=== PATIENT | female | born 1995 | race African-American/Black ===

== ENCOUNTER → 2024-06-25 | Outpatient (CLI) | payer MEDICAID ==
[~2024-06-25] MED LIST: PREN27TA7 OR
[2024-06-25 13:37] LABS: Basophils # (auto) 0 10 ^3/uL (0-0.2); Basophils % (auto) 0.2 % (0.0-2.0); Eosinophils # (auto) 0.1 10 ^3/uL (0-0.8); Hemoglobin 13.9 g/dL (12.2-16.2); Lymphocytes # (auto) 1.7 10 ^3/uL (0.4-5.4); Lymphocytes % (auto) 18.5 % (10.0-50.0); Mean Corpuscular Hemoglobin 32.6 pg (28.0-32.0); Mean Corpuscular Hgb Conc. 35.6 g/dL (32.0-36.0); Mean Corpuscular Volume 91.6 fL (80.0-100.0); Monocytes # (auto) 0.6 10 ^3/uL (0-1.3); Monocytes % (auto) 6.5 % (0.0-12.0); Neutrophils # (auto) 6.8 10 ^3/uL (1.6-8.6); Neutrophils % (auto) 73.8 % (37.0-80.0); Platelet Count (auto) 270 10^3/uL (140-450); Red Blood Cells 4.26 10^6/uL (4.0-5.20); Red Cell Distribution Width 13.1 % (11.8-14.3); White Blood Cell 9.1 10^3/uL (4.4-10.8)
[2024-06-25 14:26] LABS: Alanine Aminotransferase 15 U/L (7-40); Albumin 4.1 g/dL (3.2-4.8); Alkaline Phosphatase 42 U/L (46-116); Calcium 9.2 mg/dL (8.7-10.4); Carbon Dioxide 22 mmol/L (20-31); Chloride 112 mmol/L (98-107); Triglycerides 103 mg/dL (< 150)
[2024-06-25 14:27] LABS: Anion Gap 6 (5-15); Aspartate Aminotransferase < 8 U/L (13-40); BUN/Creatinine Ratio 9.5 (10.0-20.0); Bilirubin, Total 0.2 mg/dL (0.2-1.0); Blood Urea Nitrogen 10 mg/dL (9-23); Cholesterol 135 mg/dL (< 200); Glucose 73 mg/dL (74-106); HDL Cholesterol 50 mg/dL (40-59); LDL Cholesterol 74 mg/dL (< 100); Potassium 3.9 mmol/L (3.5-5.1); Sodium 140 mmol/L (136-145); Total Protein 6.4 g/dL (5.7-8.2)
[2024-06-25 15:09] LABS: Amphetamine Screen, Urine Neg (NEGATIVE); Benzodiazephine Screen, Urine Neg (NEGATIVE)
[2024-06-25 15:10] LABS: Barbiturate Scree,Urine Neg (NEGATIVE); Cannabinoid Screen, Urine Pos (NEGATIVE); Cocaine Screen, Urine Neg (NEGATIVE); Opiate Scree,Urine Neg (NEGATIVE); Phencyclidine Screen, Urine Neg (NEGATIVE)
[2024-06-25 15:19] LABS: Thyroid Stimulating Hormone 0.77 uIU/mL (0.55-4.78)
[2024-06-26 07:06] LABS: RPR Non Reactive (Non Reactive)
[2024-06-26 12:06] LABS: Varicella Zoster IgG Antibody Reactive (Non Reactive)
[2024-06-26 19:06] LABS: Chlamydia Trachomatis, NAA Negative (Negative); Neisseria gonorrhoeae, NAA Negative (Negative)
[2024-06-28 05:08] LABS: QuantiFERON-TB Gold Plus Negative (Negative)
== END | disposition home or self-care (01) ==
LOC: LAB 12:26
PROVIDERS: ATTEND Obstetrics & Gynecology
DX: Z31.430 Encounter of female for testing for genetic disease carrier status for procreative management (principal); Z34.80 Encounter for supervision of other normal pregnancy, unspecified trimester; N39.0 Urinary tract infection, site not specified
CPT/HCPCS: 36415; 80053; 80061; 80307; 83036; 84439; 84443; 84702; 85025; 86592; 86703; 86762; 86787; 86850; 86900; 86901; 87086; 87340; 87902

== ENCOUNTER 2024-12-17 11:11 | Observation (INO) | payer MEDICAID ==
--- NOTE | 2024-12-17 12:10 | DVH ---
BIOPHYSICAL PROFILE HISTORY: Possible SROM Comparison Study: None TECHNIQUE: Multiple real-time grayscale sonographic images through the gravid uterus of the fetus wi th duplex Doppler color flow and M-mode spectral analysis FINDINGS: BIOPHYSICAL PROFILE: breathing score: 2 movement score: 2 tone score: 2 Quantitative SHIVAM score: 2 (SHIVAM: 14.4 Cm.) Total score: 8 The cervix is not visualized Single live fetus in cephalic presentation. heart rate 138 beats per minute. Posterior placenta without previa or abruption IMPRESSION: Biophysical profile score: 8
[2024-12-17 12:51] LABS: Fern Testing Negative
== END 2024-12-17 13:12 | disposition home or self-care (01) ==
LOC: UNDOADMOB 11:11 → LDRP 11:11
PROVIDERS: ADMIT Obstetrics & Gynecology; ATTEND Obstetrics & Gynecology
DX: O62.9 Abnormality of forces of labor, unspecified (principal); Z3A.34 34 weeks gestation of pregnancy; Z79.899 Other long term (current) drug therapy
CPT/HCPCS: 76819; 81002; 84112; 94760; G0378; Q0114

== ENCOUNTER 2025-01-02 14:55 | Observation (INO) | payer MEDICAID ==
--- NOTE | 2025-01-03 07:59 | DVHDS2 ---
Physician Discharge Progress N Final Diagnosis: [facility] 37wks Operations or Procedures: Operations or Procedures nst,sono Condition on Discharge: Good Disposition: Home Discharge Instructions: Diet: Regular Activity: No Restrictions, As Tolerated Medications: na Follow Up Care: Specialist: 1w Discharge Statement: "Patient was advised to return to the ER or call 911 if any headaches, dizziness, shortness of breath, chest pain, abdominal pain, bleeding, fevers, or worsening of medical condition. Patient was counseled about treatment plan, medications, possible side effects, patientverbalized understanding. All questions were answered to the best of my ability. This discharge took greater then 30 minutes in planning, reviewing documentation, counseling the patient, and discussing with other team members." Visit Coding OBGYN Date of Service: Jan 02, 2025 Billing Provider: EVELYN CHAMPION DO COMMERCIAL DOOR INSTALLER Common Visit Codes: [id number] INP/OBS CARE (HIGH) COMMERCIAL DOOR INSTALLER Procedure Codes: [id number] NON-STRESS TEST EVELYN CHAMPION DO Jan 03, 2025 07:59
== END 2025-01-02 17:09 | disposition home or self-care (01) ==
LOC: UNDOADMOB 14:55 → LDRP 14:55 → UNDODISOB 17:09
PROVIDERS: ADMIT Obstetrics & Gynecology; ATTEND Obstetrics & Gynecology
DX: O62.9 Abnormality of forces of labor, unspecified (principal); O42.913 Preterm premature rupture of membranes, unspecified as to length of time between rupture and onset of labor, third trimester; Z3A.37 37 weeks gestation of pregnancy; Z79.899 Other long term (current) drug therapy; Z98.890 Other specified postprocedural states
CPT/HCPCS: 59025; 81002; 84112; 94760; G0378

== ENCOUNTER 2025-01-07 10:20 | Observation (INO) | payer MEDICAID ==
[~2025-01-07] VITALS: Ht 157.5 cm; Wt 91.2 kg
[2025-01-07] MEDS ORDERED: LACTATED RINGER'S 1,000 ML IV ONE (12:45)
[2025-01-07 13:15] VITALS: BP 127/79; PULSE 80; RESP 16
[2025-01-07] MEDS: NALBUPHINE HCL 10 MG/1ml INJECTION IV PRN (13:15)
--- NOTE | 2025-01-07 14:26 | DVH ---
BIOPHYSICAL PROFILE HISTORY: Presentation and well being Comparison Study: 12/17/24 TECHNIQUE: Multiple real-time grayscale sonographic images through the gravid uterus of the fetus wi th duplex Doppler color flow and M-mode spectral analysis FINDINGS: BIOPHYSICAL PROFILE: breathing score: 2 movement score: 2 tone score: 2 Quantitative SHIVAM score: 2 (SHIVAM: 13.2 Cm.) Total score: 8 The cervix is not visualized Single live fetus in cephalic presentation. heart rate 150 beats per minute. Posterior placenta without previa or abruption IMPRESSION: Biophysical profile score: 8
--- NOTE | 2025-01-08 17:29 | DVHDS2 ---
Physician Discharge Progress N Final Diagnosis: 37wks labor check Operations or Procedures: Operations or Procedures nst,sono Condition on Discharge: Good Disposition: Home Discharge Instructions: Diet: Regular Activity: Light activity Medications: na Follow Up Care: Specialist: 1d Discharge Statement: "Patient was advised to return to the ER or call 911 if any headaches, d izziness, shortness of breath, chest pain, abdominal pain, bleeding, fevers, or worsening of medical condition. Patient was counseled about treatment plan, medications, possible side effects, patientverbalized understanding. All questions were answered to the best of my ability. This discharge took greater then 30 minutes in planning, reviewing documentation, counseling the patient, and discussing with other team members." Visit Coding OBGYN Date of Service: Jan 07, 2025 Billing Provider: EVELYN CHAMPION DO CAT SITTER Common Visit Codes: [id number] INP/OBS CARE (HIGH) CAT SITTER Procedure Codes: [id number] NON-STRESS TEST EVELYN CHAMPION DO Jan 08, 2025 17:29
== END 2025-01-07 15:41 | disposition home or self-care (01) ==
LOC: LDRP 10:20
PROVIDERS: ADMIT Obstetrics & Gynecology; ATTEND Obstetrics & Gynecology
DX: O62.9 Abnormality of forces of labor, unspecified (principal); O99.891 Other specified diseases and conditions complicating pregnancy; M54.9 Dorsalgia, unspecified; Z79.899 Other long term (current) drug therapy; Z3A.37 37 weeks gestation of pregnancy
CPT/HCPCS: 59025; 76819; 81002; 94760; 96361; 96374; G0378; J2300; 96360

== ENCOUNTER 2025-01-13 03:29 | Inpatient (IN) | payer MEDICAID ==
[~2025-01-13] VITALS: Ht 157.5 cm; Wt 91.2 kg
[2025-01-13] MEDS ORDERED: LIDOCAINE 2%HCL (LOCAL ANESTH.) INJ 20ML MDV IJ PRN (06:45)
[2025-01-13] MEDS ORDERED: BUTORPHANOL TARTRATE 2 MG/1 ML VIAL IV PRN ×2 (06:45)
--- NOTE | 2025-01-13 06:45 | DVHHP2 ---
OB CC & HPI Date Date of Admission: Jan 13, 2025 Chief Complaints: Reason for admission: active labor Past Medical History Cardiac: No pertinent Hx Pulmonary: No pertinent Hx Central Nervous System: No pertinent Hx GI: No pertinent Hx Hemotology/Oncology: No pertinent Hx Hepatobiliary: No pertinent Hx Psychiatric: No pertinent Hx Musculoskeletal: No pertinent Hx Rheumotologic: No pertinent Hx Infectious Disease: No peritnent Hx ENT: No pertinent Hx Renal/: No pertinent Hx Endocrine: No pertinent Hx Dermatology: No pertinent Hx OB History OB History Care: Good Care Ultrasounds: Normal mid trimester US Medical Complications: None Allergies: Coded Allergies: Codeine (Verified Allergy, Unknown, 01/13/25) Home Meds Reported Medications Vit W/ Ferrous Fumara () 1 Tab Tab, 1 TAB OR DAILY 04/06/13 Current Medications Current Medications Medications (Trade) Dose Ordered Sig/Mo Route PRN Reason Start Time Stop Time Status Last Admin Lactated Ringer's 1,000 ml @ 125 mls/hr Q8H IV 01/13/25 06:45 Witch Francisca (Tucks) 1 pad PRN PRN TOP PERINEAL AREA DISCOMFORT 01/13/25 06:45 Sodium Lauryl Sulfate (Phisoderm) 240 ml PRN PRN TOP PERINEAL AREA DISCOMFORT 01/13/25 06:45 Benzocaine (Dermoplast) 1 applic PRN PRN TOP PERINEAL AREA DISCOMFORT 01/13/25 06:45 Butorphanol Tartrate (Stadol Injection) 1 mg Q4HPRN PRN IV MODERATE PAIN (4-6 PAIN SCALE) 01/13/25 06:45 Butorphanol Tartrate (Stadol Injection) 2 mg Q4HPRN PRN IV SEVERE PAIN (7-10 PAIN SCALE) 01/13/25 06:45 Lidocaine HCl (Xylocaine) 20 ml ONCE PRN IJ PERINEAL AREA DISCOMFORT 01/13/25 06:45 Family & Social History Family/Social History Blood Type: B+ Rubella: immune RPR/VDRL: Negative GBS Status: Negative HBsAG: Negative Review of Systems Constitutional: No symptom reported Ears, Nose, & Throat: No symptom reported Eyes: No symptom reported Pulmonary/Respiratory: No symptom reported Cardiovascular: No symptom reported Gastrointestinal: No symptom reported Genitourinary: No symptom reported Musculoskeletal: No symptom reported Skin: No symptom reported Psychiatric: No symptom reported Endocrine: No symptom reported Hemotologic/Lymphatic: No symptom reported OB Admission Exam Physical Exam HEENT: TMs Normal, Fontanelles Normal, Nasal Mucosa Normal, Eyes non-injected, Oropharynx Normal, PERRLA, Moist Membranes, EOMI Heart: Rhythm Normal Lungs: Clear Abdomen: Non tender Extremities: Normal Reflexes: Normal Cervical Dilatation: 6cm Effacement: 75% Station: -1 Membranes: Intact Heart Rate: 130's Accelerations: Accelerations Present Short Term Variability: Present Lead Systems Analyst Variability: Average (6-25) Contractions on Admission: < 5 Minutes Apart Intensity: Moderate OB Plan Plan Admitting Diagnosis: labor Plan: Expectant Management JAMI BONILLA DO Jan 13, 2025 06:45
[2025-01-13 07:11] LABS: Urine Bacteria None Seen /hpf (None Seen)
[2025-01-13 07:27] LABS: Basophils # (auto) 0.1 10 ^3/uL (0-0.2); Basophils % (auto) 0.7 % (0.0-2.0); Eosinophils # (auto) 0 10 ^3/uL (0-0.8); Eosinophils % (auto) 0.2 % (0.0-7.0); Hematocrit 38.6 % (36.0-46.0); Hemoglobin 13.9 g/dL (12.2-16.2); Lymphocytes # (auto) 1.6 10 ^3/uL (0.4-5.4); Mean Corpuscular Hemoglobin 32.6 pg (28.0-32.0); Mean Corpuscular Hgb Conc. 36.1 g/dL (32.0-36.0); Mean Corpuscular Volume 90.4 fL (80.0-100.0); Monocytes # (auto) 0.6 10 ^3/uL (0-1.3); Monocytes % (auto) 6.8 % (0.0-12.0); Neutrophils % (auto) 75.3 % (37.0-80.0); Platelet Count (auto) 217 10^3/uL (140-450); Red Blood Cells 4.27 10^6/uL (4.0-5.20); Red Cell Distribution Width 13.1 % (11.8-14.3); White Blood Cell 9.4 10^3/uL (4.4-10.8)
[2025-01-13] MEDS: LACTATED RINGER'S 1,000 ML IV SCH (07:28)
[2025-01-13] MEDS: WITCH HAZEL-GLYCERIN PAD TOP PRN (07:28)
[2025-01-13] MEDS: PHISODERM TOP SOLN 240ML BTL TOP PRN (07:28)
[2025-01-13] MEDS: DERMOPLAST 60ML BOTTLE TOP PRN (07:28)
[2025-01-13 07:29] LABS: INR 0.97 (0.9-1.15); Partial Thromboplastin Time 26.2 SEC (24.5-34.5); Prothrombin Time 10.3 sec (9.3-11.8)
[2025-01-13 07:30] LABS: Cannabinoid Screen, Urine Pos (NEGATIVE)
[2025-01-13 07:34] LABS: Alanine Aminotransferase 12 U/L (7-40); Albumin 4.1 g/dL (3.2-4.8); Anion Gap 12 (5-15); BUN/Creatinine Ratio 12.9 (10.0-20.0); Bilirubin, Total 0.6 mg/dL (0.2-1.0); Calcium 9.4 mg/dL (8.7-10.4); Glucose 81 mg/dL (74-106); Potassium 3.6 mmol/L (3.5-5.1); Sodium 137 mmol/L (136-145); Total Protein 6.6 g/dL (5.7-8.2)
[2025-01-13 07:35] LABS: Alkaline Phosphatase 125 U/L (46-116); Aspartate Aminotransferase 10 U/L (13-40); Blood Urea Nitrogen 8 mg/dL (9-23); Carbon Dioxide 17 mmol/L (20-31); Chloride 108 mmol/L (98-107)
[2025-01-13 07:35] LABS: Amphetamine Screen, Urine Neg (NEGATIVE); Barbiturate Scree,Urine Neg (NEGATIVE); Benzodiazephine Screen, Urine Neg (NEGATIVE); Cocaine Screen, Urine Neg (NEGATIVE); Opiate Scree,Urine Neg (NEGATIVE); Phencyclidine Screen, Urine Neg (NEGATIVE)
[2025-01-13 07:44] LABS: Urine Blood Negative /uL (Negative); Urine Clarity Clear (Clear); Urine Color Light-Orange (Yellow); Urine Mucus FEW (None Seen); Urine Protein, UAD TRACE (Negative); Urine Specific Gravity 1.032 (1.001-1.035); Urine Squamous Epithelial Cell FEW /hpf (<5); Urine Urobilinogen Normal (Negative); Urine WBC 2 /HPF (0-5); Urine pH 5.5 (5.0-9.0)
--- NOTE | 2025-01-13 08:26 | DVHPN2 ---
CNM Labor Progress Note Date and Time Seen Date Seen: Jan 13, 2025 Time Seen: 08:26 Subjective Patient reports: No new complaints Subjective Comment Pt comfortable with epidural, denies pain. Objective Vital Signs VSS, see CPN Monitoring Method Monitoring Method: External Heart Rate Heart Rate Baseline: 130 Heart Rate Variability: Moderate Presence of FHR Accelerations: Yes Presence of FHR Decelerations: No Changes in Trends of Patterns: No Are all 5 Components of the FH: Yes Membranes Membranes: Bulging Vaginal Exam Vag Exam Deferred: Yes (SVE by RN: 0) Medications Medications - Pitocin: No Medication - Epidural: Yes Lab Results Lab Results Vital Signs Date Time Temp Pulse Resp B/P (MAP) Pulse Ox O2 Delivery O2 Flow Rate FiO2 01/13/25 18:30 98.8 89 16 129/76 (93) 100 98.8 01/13/25 18:30 Room Air I & O 01/14/25 07:00 Output Total 700 ml Balance -700 ml Output Urine Total 700 ml # Voids 3 # Sanitary Pads 1 Current Medications Medications (Trade) Dose Ordered Sig/Mo Start Time Stop Time Status Last Admin Dose Admin Lactated Ringer's 1,000 ml @ 125 mls/hr Q8H 01/13/25 06:45 01/13/25 15:32 125 MLS/HR Witch Francisca (Tucks) 1 pad PRN PRN 01/13/25 06:45 01/13/25 07:28 1 PAD Sodium Lauryl Sulfate (Phisoderm) 240 ml PRN PRN 01/13/25 06:45 01/13/25 07:28 240 ML Benzocaine (Dermoplast) 1 applic PRN PRN 01/13/25 06:45 01/13/25 07:28 1 APPLIC Butorphanol Tartrate (Stadol Injection) 1 mg Q4HPRN PRN 01/13/25 06:45 Hold Butorphanol Tartrate (Stadol Injection) 2 mg Q4HPRN PRN 01/13/25 06:45 Lidocaine HCl (Xylocaine) 20 ml ONCE PRN 01/13/25 06:45 Oxytocin 500 ml @ 999 mls/hr Q31M ONCE 01/13/25 07:15 01/13/25 07:45 DC 01/13/25 16:11 999 MLS/HR Oxytocin 500 ml @ 125 mls/hr Q4H ONCE 01/13/25 07:45 01/13/25 11:44 DC 01/13/25 16:11 125 MLS/HR Oxytocin 1,000 ml @ 6 ml/hr Q24H 01/13/25 15:15 01/13/25 16:14 DC Terbutaline Sulfate (Brethine Inj) 0.25 mg ONCE PRN 01/13/25 15:15 Ibuprofen (Motrin Tablet) 600 mg Q6HP PRN 01/13/25 16:15 01/13/25 20:39 600 MG Acetaminophen (Tylenol Tablet) 650 mg Q4HP PRN 01/13/25 16:15 Ondansetron HCl (Zofran Po) 4 mg Q4HPRN PRN 01/13/25 16:15 Laboratory Tests Test 01/13/25 07:03 01/13/25 06:30 Range/Units White Blood Count 9.4 4.4-10.8 10^3/uL Red Blood Count 4.27 4.0-5.20 10^6/uL Hemoglobin 13.9 12.2-16.2 g/dL Hematocrit 38.6 36.0-46.0 % Mean Corpuscular Volume 90.4 80.0-100.0 fL Mean Corpuscular Hemoglobin 32.6 H 28.0-32.0 pg Mean Corpuscular Hemoglobin Concent 36.1 H 32.0-36.0 g/dL Red Cell Distribution Width 13.1 11.8-14.3 % Platelet Count 217 140-450 10^3/uL Mean Platelet Volume 6.5 L 6.9-10.8 fL Neutrophils (%) (Auto) 75.3 37.0-80.0 % Lymphocytes (%) (Auto) 17.0 10.0-50.0 % Monocytes (%) (Auto) 6.8 0.0-12.0 % Eosinophils (%) (Auto) 0.2 0.0-7.0 % Basophils (%) (Auto) 0.7 0.0-2.0 % Neutrophils # (Auto) 7.0 1.6-8.6 10 ^3/uL Lymphocytes # (Auto) 1.6 0.4-5.4 10 ^3/uL Monocytes # (Auto) 0.6 0-1.3 10 ^3/uL Eosinophils # (Auto) 0 0-0.8 10 ^3/uL Basophils # (Auto) 0.1 0-0.2 10 ^3/uL Nucleated Red Blood Cells 0.0 % Prothrombin Time 10.3 9.3-11.8 sec Prothrombin Time INR 0.97 0.9-1.15 Activated Partial Thromboplast Time 26.2 24.5-34.5 SEC Sodium Level 137 136-145 mmol/L Potassium Level 3.6 3.5-5.1 mmol/L Chloride Level 108 H 98-107 mmol/L Carbon Dioxide Level 17 L 20-31 mmol/L Anion Gap 12 5-15 Blood Urea Nitrogen 8 L 9-23 mg/dL Creatinine 0.62 0.550-1.02 mg/dL Glomerular Filtration Rate Calc 122 >90 mL/min BUN/Creatinine Ratio 12.9 10.0-20.0 Serum Glucose 81 74-106 mg/dL Calcium Level 9.4 8.7-10.4 mg/dL Total Bilirubin 0.6 0.2-1.0 mg/dL Aspartate Amino Transferase (AST) 10 L 13-40 U/L Alanine Aminotransferase (ALT) 12 7-40 U/L Alkaline Phosphatase 125 H 46-116 U/L Total Protein 6.6 5.7-8.2 g/dL Albumin 4.1 3.2-4.8 g/dL Treponema pallidum Antibody Non-reactive Negative Hepatitis C Antibody Negative Negative Urine Color Light-orange Yellow Urine Clarity Clear Clear Urine pH 5.5 5.0-9.0 Urine Specific [place] 1.032 1.001-1.035 Urine Protein Trace H Negative Urine Ketones 4+ H Negative Urine Blood Negative Negative /uL Urine Nitrite Negative Negative Urine Bilirubin Negative Negative Urine Urobilinogen Normal Negative mg/dL Urine Leukocyte Esterase Negative Negative /uL Urine RBC 1 0 - 4 /hpf Urine Microscopic WBC 2 0-5 /HPF Urine Squamous Epithelial Cells Few <5 /hpf Urine Bacteria None seen None Seen /hpf Urine Mucus Few None Seen Urine Glucose Normal Normal mg/dL Urine Opiates Screen Neg NEGATIVE Urine Fentanyl Screen Neg NEGATIVE Urine Barbiturates Screen Neg NEGATIVE Urine Phencyclidine Screen Neg NEGATIVE Urine Amphetamines Screen Neg NEGATIVE Urine Benzodiazepines Screen Neg NEGATIVE Urine Cocaine Screen Neg NEGATIVE Urine Cannabinoids Screen Pos NEGATIVE Assessment Assessment 29yo IUP@38.5wks Active labor Category I EFM Intact Membranes GBS negative Plan Plan Expectant management for now due to frequent UCs monitoring per order Pain mgmt- epidural in place Frequent position changes in bed encouraged Limit SVE unless necessary Intrauterine resuscitation PRN Anticipate CNM will consult with Dr. Villafana PRN Plan discussed with: Patient Visit Coding OBGYN Date of Service: Jan 14, 2025 Billing Provider: RICKEY COTTON CNM GARMENT PATTERNMAKER Common Visit Codes: [id number] INP/OBS CARE(MOD) RICKEY COTTON CNM Jan 13, 2025 08:26
--- NOTE | 2025-01-13 12:11 | DVHPN2 ---
CNM Labor Progress Note Date and Time Seen Date Seen: Jan 13, 2025 Time Seen: 10:30 Subjective Patient reports: No new complaints Subjective Comment pt reports feeling comfortable with epidural and feeling intermittent pressure Objective Vital Signs VSS, see chart Monitoring Method Monitoring Method: External Heart Rate Heart Rate Baseline: 130 Heart Rate Variability: Moderate Presence of FHR Accelerations: Yes Presence of FHR Decelerations: Yes Heart Rate Type of Decel: Early Deceleraions, Variable Decelerations Changes in Trends of Patterns: No Are all 5 Components of the FH: Yes Contractions Contractions Frequency: Other (2-5) Duration of Contraction: 80 Contractions Intensity: Moderate Contractions Resting Tone: Relaxed Membranes Membranes: Ruptured Amniotic Fluid Color: APPLICATION DEVELOPMENT LIAISON Meconium (Heavy meconium) Vaginal Exam Vag Exam Deferred: No (AROM with vaginal exam) Vaginal Exam Dilation: 7 Vaginal Exam Effacement: 80 Vaginal Exam Station: -2 Vaginal Exam Presentation: VTX Vaginal Exam Show: None Medications Medications - Pitocin: No Medication - Epidural: Yes Lab Results Lab Results Vital Signs Date Time Temp Pulse Resp B/P (MAP) Pulse Ox O2 Delivery O2 Flow Rate FiO2 01/13/25 18:30 98.8 89 16 129/76 (93) 100 98.8 01/13/25 17:55 Room Air Current Medications Medications (Trade) Dose Ordered Sig/Mo Start Time Stop Time Status Last Admin Dose Admin Lactated Ringer's 1,000 ml @ 125 mls/hr Q8H 01/13/25 06:45 01/13/25 15:32 125 MLS/HR Witleanna Sanfordel (Tucks) 1 pad PRN PRN 01/13/25 06:45 01/13/25 07:28 1 PAD Sodium Lauryl Sulfate (Phisoderm) 240 ml PRN PRN 01/13/25 06:45 01/13/25 07:28 240 ML Benzocaine (Dermoplast) 1 applic PRN PRN 01/13/25 06:45 01/13/25 07:28 1 APPLIC Butorphanol Tartrate (Stadol Injection) 1 mg Q4HPRN PRN 01/13/25 06:45 Hold Butorphanol Tartrate (Stadol Injection) 2 mg Q4HPRN PRN 01/13/25 06:45 Lidocaine HCl (Xylocaine) 20 ml ONCE PRN 01/13/25 06:45 Oxytocin 500 ml @ 999 mls/hr Q31M ONCE 01/13/25 07:15 01/13/25 07:45 DC 01/13/25 16:11 999 MLS/HR Oxytocin 500 ml @ 125 mls/hr Q4H ONCE 01/13/25 07:45 01/13/25 11:44 DC 01/13/25 16:11 125 MLS/HR Oxytocin 1,000 ml @ 6 ml/hr Q24H 01/13/25 15:15 01/13/25 16:14 DC Terbutaline Sulfate (Brethine Inj) 0.25 mg ONCE PRN 01/13/25 15:15 Ibuprofen (Motrin Tablet) 600 mg Q6HP PRN 01/13/25 16:15 Acetaminophen (Tylenol Tablet) 650 mg Q4HP PRN 01/13/25 16:15 Ondansetron HCl (Zofran Po) 4 mg Q4HPRN PRN 01/13/25 16:15 Laboratory Tests Test 01/13/25 07:03 01/13/25 06:30 Range/Units White Blood Count 9.4 4.4-10.8 10^3/uL Red Blood Count 4.27 4.0-5.20 10^6/uL Hemoglobin 13.9 12.2-16.2 g/dL Hematocrit 38.6 36.0-46.0 % Mean Corpuscular Volume 90.4 80.0-100.0 fL Mean Corpuscular Hemoglobin 32.6 H 28.0-32.0 pg Mean Corpuscular Hemoglobin Concent 36.1 H 32.0-36.0 g/dL Red Cell Distribution Width 13.1 11.8-14.3 % Platelet Count 217 140-450 10^3/uL Mean Platelet Volume 6.5 L 6.9-10.8 fL Neutrophils (%) (Auto) 75.3 37.0-80.0 % Lymphocytes (%) (Auto) 17.0 10.0-50.0 % Monocytes (%) (Auto) 6.8 0.0-12.0 % Eosinophils (%) (Auto) 0.2 0.0-7.0 % Basophils (%) (Auto) 0.7 0.0-2.0 % Neutrophils # (Auto) 7.0 1.6-8.6 10 ^3/uL Lymphocytes # (Auto) 1.6 0.4-5.4 10 ^3/uL Monocytes # (Auto) 0.6 0-1.3 10 ^3/uL Eosinophils # (Auto) 0 0-0.8 10 ^3/uL Basophils # (Auto) 0.1 0-0.2 10 ^3/uL Nucleated Red Blood Cells 0.0 % Prothrombin Time 10.3 9.3-11.8 sec Prothrombin Time INR 0.97 0.9-1.15 Activated Partial Thromboplast Time 26.2 24.5-34.5 SEC Sodium Level 137 136-145 mmol/L Potassium Level 3.6 3.5-5.1 mmol/L Chloride Level 108 H 98-107 mmol/L Carbon Dioxide Level 17 L 20-31 mmol/L Anion Gap 12 5-15 Blood Urea Nitrogen 8 L 9-23 mg/dL Creatinine 0.62 0.550-1.02 mg/dL Glomerular Filtration Rate Calc 122 >90 mL/min BUN/Creatinine Ratio 12.9 10.0-20.0 Serum Glucose 81 74-106 mg/dL Calcium Level 9.4 8.7-10.4 mg/dL Total Bilirubin 0.6 0.2-1.0 mg/dL Aspartate Amino Transferase (AST) 10 L 13-40 U/L Alanine Aminotransferase (ALT) 12 7-40 U/L Alkaline Phosphatase 125 H 46-116 U/L Total Protein 6.6 5.7-8.2 g/dL Albumin 4.1 3.2-4.8 g/dL Treponema pallidum Antibody Non-reactive Negative Hepatitis C Antibody Negative Negative Urine Color Light-orange Yellow Urine Clarity Clear Clear Urine pH 5.5 5.0-9.0 Urine Specific [place] 1.032 1.001-1.035 Urine Protein Trace H Negative Urine Ketones 4+ H Negative Urine Blood Negative Negative /uL Urine Nitrite Negative Negative Urine Bilirubin Negative Negative Urine Urobilinogen Normal Negative mg/dL Urine Leukocyte Esterase Negative Negative /uL Urine RBC 1 0 - 4 /hpf Urine Microscopic WBC 2 0-5 /HPF Urine Squamous Epithelial Cells Few <5 /hpf Urine Bacteria None seen None Seen /hpf Urine Mucus Few None Seen Urine Glucose Normal Normal mg/dL Urine Opiates Screen Neg NEGATIVE Urine Fentanyl Screen Neg NEGATIVE Urine Barbiturates Screen Neg NEGATIVE Urine Phencyclidine Screen Neg NEGATIVE Urine Amphetamines Screen Neg NEGATIVE Urine Benzodiazepines Screen Neg NEGATIVE Urine Cocaine Screen Neg NEGATIVE Urine Cannabinoids Screen Pos NEGATIVE Assessment Assessment 29 yo F IUP @ 38.5 weeks Active Labor Category II EFM AROM, heavy meconium GBS negative Plan Plan Expectant management monitoring per order Pain mgmt via epidural Frequent position changes in bed encouraged Limit SVE unless necessary Intrauterine resuscitation PRN Anticipate CNM will consult with Dr. Villafana PRN Plan discussed with: Patient, Spouse Visit Coding OBGYN Date of Service: Jan 13, 2025 Billing Provider: RICKEY COTTON CNM ACID ADJUSTER Common Visit Codes: [id number] INP/OBS CARE(MOD) OPAL DO MDWF Jan 13, 2025 12:11
[2025-01-13] MEDS ORDERED: LACT. RINGERS/OXYTOCIN 20UNITS 1,000 ML IV SCH (15:15)
[2025-01-13] MEDS ORDERED: TERBUTALINE SULFATE 1 MG/ML 1ML VIAL SC PRN (15:15)
[2025-01-13] MEDS: ROPIVACAINE HCL 200 ML ONE (16:10)
[2025-01-13] MEDS: LACT. RINGERS/OXYTOCIN 20UNITS 500 ML IV ONE ×2 (16:11)
[2025-01-13] MEDS: LACT. RINGERS/OXYTOCIN 20UNITS 1,000 ML IV ONE (16:13)
[2025-01-13] MEDS: ePHEDrine SULFATE 50 MG/ML AMP ONE (16:14)
[2025-01-13] MEDS ORDERED: ACETAMINOPHEN 325 MG TAB PO PRN (16:15)
[2025-01-13] MEDS ORDERED: ONDANSETRON ODT 4 MG TAB PO PRN (16:15)
--- NOTE | 2025-01-13 16:18 | LDN2 ---
Labor and Delivery Note Date 01/13/25 Age 29 10 Para 8 AB 2 EDC 01/22/2025 EGA 38.5 weeks Diagnosis Labor then Vaginal Delivery: VTX Vacuum Assisted: No Placenta: Spontaneous Sex: Female Weight 3095 grams Apgars 8/9 Nuchal Cord Transected: No Amniotic Fluid: Meconium Stained Anesthesia Epidural anesthesia Episiotomy: No Extension: No Repaired with Perineum intact EBL QBL: 200 mL Labs Laboratory Tests 06/25/24 12:48: Hepatitis B Surface Antigen Negative, HIV (1&2) Antibody Negative, Rubella Antibody Positive Blood Bank 01/13/25 07:03: Blood Type B POSITIVE Complications N/A Conditions Stable Electric Motor Tester Assembler Dr. Norman Comments/Significant Med Bear At 1547 this 29yo now delivered a viable Female infant by w/ APGARS 8/9. PEPITO. RT at bedside at delivery. Infant placed skin to skin on pts chest. Cord clamped and cut after 2 minutes for acuity. Cord gases sent. Intact 3-vessel cord placenta delivered spontaneously, Migel. Pitocin IV bolus started. Placenta sent to pathology. Patient had epidural anesthesia. Cervix/vagina/perineum inspected and intact. Fundus at U, firm, midline, and light lochia. QBL 200ml. VSS. Count correct x2. Patient to care and baby to couplet care, both stable. Visit Coding OBGYN Date of Service: Jan 13, 2025 Billing Provider: RICKEY COTTON CNM DIRECTOR VETERINARY Common Visit Codes: PROCEDURE ONLY DIRECTOR VETERINARY Procedure Codes: [id number] DEL INCLUDING OPAL DO STDKaylen MDWF Jan 13, 2025 16:18
[2025-01-13 18:30] VITALS: BP 129/76; PULSE 89; RESP 16; TEMP 98.8; O2SAT 100
[2025-01-13] MEDS: IBUPROFEN 600 MG TAB PO PRN (20:39)
[2025-01-13 22:50] VITALS: BP 117/63; PULSE 96; RESP 16; TEMP 98.1; O2SAT 97
--- NOTE | 2025-01-14 00:42 | DVHPN2 ---
Progress Note Date Seen: Jan 14, 2025 Subjective S: bleeding is less, eating food without issues, denies lightheaded/dizziness, pain well controlled with oral medications, no concerns with urinating, passing flatus, no BM yet, ambulating well, bottle feeding, wants to hand pump vital signs Vital Sign Date Time Temp Pulse Resp B/P (MAP) Pulse Ox O2 Delivery O2 Flow Rate FiO2 01/13/25 18:30 98.8 89 16 129/76 (93) 100 98.8 01/13/25 18:30 Room Air Total Intake and Output 01/13/25 01/13/25 01/14/25 15:00 23:00 07:00 Output Total 700 ml Balance -700 ml medications Current Medications Medications Dose Ordered Sig/Mo Route Start Time Stop Time Status Last Admin Dose Admin Lactated Ringer's 1,000 ml @ 125 mls/hr Q8H IV 01/13/25 06:45 01/13/25 15:32 125 MLS/HR Yuliya Espinosa 1 pad PRN PRN TOP 01/13/25 06:45 01/13/25 07:28 1 PAD Sodium Lauryl Sulfate 240 ml PRN PRN TOP 01/13/25 06:45 01/13/25 07:28 240 ML Benzocaine 1 applic PRN PRN TOP 01/13/25 06:45 01/13/25 07:28 1 APPLIC Butorphanol Tartrate 1 mg Q4HPRN PRN IV 01/13/25 06:45 Hold Butorphanol Tartrate 2 mg Q4HPRN PRN IV 01/13/25 06:45 Lidocaine HCl 20 ml ONCE PRN IJ 01/13/25 06:45 Terbutaline Sulfate 0.25 mg ONCE PRN SC 01/13/25 15:15 Ibuprofen 600 mg Q6HP PRN PO 01/13/25 16:15 01/13/25 20:39 600 MG Acetaminophen 650 mg Q4HP PRN PO 01/13/25 16:15 Ondansetron HCl 4 mg Q4HPRN PRN PO 01/13/25 16:15 laboratory and microbiology Laboratory Tests 01/13/25 07:03 Test 01/13/25 07:03 Range/Units Serum Glucose 81 74-106 mg/dL Objective O: VSS Chest: heart sounds normal and lung sounds clear bilaterally Abd: soft, non-tender, fundus at U/firm/midline, active bowel sounds, no rebound or guarding Perineum: intact, no erythema/edema noted Ext: Non-tender, No edema, 2+ BLE DTRs Lochia: minimal See lab results Social work consult complete Problems(with codes): (1) (normal spontaneous vaginal delivery) (2) Intact perineum (3) Precipitous drop in hematocrit Assessment/Plan A: 29yo now PPD#1 s/p Anemia Rh+ Rubella Immune Formula feeding P: D/C home today Rx sent to pharmacy precautions and preeclampsia warning signs reviewed F/U with [facility] OB office in 2 weeks Plan discussed with: Patient Visit Coding OBGYN Date of Service: Jan 14, 2025 Billing Provider: RICKEY COTTON CNM HALL CLERK Common Visit Codes: [id number] INP/OBS CARE(MOD) RICKEY COTTON CNM Jan 14, 2025 00:42
[2025-01-14] MEDS ORDERED: PREN27TA7 PO (00:43)
[2025-01-14] MEDS ORDERED: DOCU-94 PO (00:43)
[2025-01-14] MEDS ORDERED: IBU600T PO (00:43)
[2025-01-14 02:51] VITALS: BP 120/70; PULSE 87; RESP 16; TEMP 97.6; O2SAT 96
[2025-01-14 07:00] VITALS: BP 137/75; PULSE 97; RESP 18; TEMP 97.8; O2SAT 99
[2025-01-14 11:00] VITALS: BP 121/69; PULSE 89; RESP 18; TEMP 97.6; O2SAT 99
[2025-01-14 15:00] VITALS: BP 134/80; PULSE 83; RESP 18; TEMP 99.2; O2SAT 99
[2025-01-14 15:30] LABS: Basophils # (auto) 0 10 ^3/uL (0-0.2); Basophils % (auto) 0.3 % (0.0-2.0); Eosinophils # (auto) 0.1 10 ^3/uL (0-0.8); Eosinophils % (auto) 0.6 % (0.0-7.0); Hematocrit 35.7 % (36.0-46.0); Hemoglobin 12.9 g/dL (12.2-16.2); Lymphocytes % (auto) 21.2 % (10.0-50.0); Mean Corpuscular Hgb Conc. 36.2 g/dL (32.0-36.0); Mean Corpuscular Volume 91.3 fL (80.0-100.0); Monocytes # (auto) 0.7 10 ^3/uL (0-1.3); Monocytes % (auto) 7.7 % (0.0-12.0); Neutrophils # (auto) 6.7 10 ^3/uL (1.6-8.6); Neutrophils % (auto) 70.2 % (37.0-80.0); Nucleated Red Blood Cells % 0.1 %; Platelet Count (auto) 212 10^3/uL (140-450); Red Blood Cells 3.91 10^6/uL (4.0-5.20); Red Cell Distribution Width 13.5 % (11.8-14.3); White Blood Cell 9.6 10^3/uL (4.4-10.8)
--- NOTE | 2025-01-14 15:33 | DVHDS2 ---
Obstetrics Discharge Summary Obstetrics Discharge Summary Date of Admission: Jan 13, 2025 Date of Discharge: Jan 14, 2025 Reason For Admission: Onset of Labor Procedures: NST Intrapartum Procedures: Spontaneous vaginal deliv Procedures: Hct/date: (01/14/2025), Hgb/date: (01/14/2025) Operative Complicat: None Discharge Diagnosis: Term -Delivered Discharge Information: Activity ( as tolerated, no heavy lifting and nothing in the vagina for 6 weeks), Diet (Routine), Medications (RX sent), Instructions (Routine), Discharge to (Home), Accompanied by (Partner), Discarge date (01/14/2025) Visit Coding OBGYN Date of Service: Jan 14, 2025 Billing Provider: RICKEY COTTON CNM AERODYNAMIC CONSULTANT Common Visit Codes: [id number] DISCH DAY <30MIN OPAL DO STDKaylen MDWF Jan 14, 2025 15:33
[2025-01-14 16:47] VITALS: TEMP 37.3
[2025-01-14 18:45] VITALS: BP 122/68; PULSE 68; RESP 20; TEMP 98.2
== END 2025-01-14 20:36 | disposition home or self-care (01) | DRG 560 ==
LOC: LDRP 03:29 → OBSVTOIN 06:35 → LDRP 07:10
PROVIDERS: ADMIT Obstetrics & Gynecology; ATTEND Obstetrics & Gynecology
PROC: 10E0XZZ Delivery of Products of Conception, External Approach (ICD-10-PCS; principal; 2025-01-13)
PROC: 3E0R3BZ Introduction of Anesthetic Agent into Spinal Canal, Percutaneous Approach (ICD-10-PCS; 2025-01-13)
PROC: 00HU33Z Insertion of Infusion Device into Spinal Canal, Percutaneous Approach (ICD-10-PCS; 2025-01-13)
DX: O77.0 Labor and delivery complicated by meconium in amniotic fluid (principal); Z37.0 Single live birth; O90.81 Anemia of the puerperium; Z3A.38 38 weeks gestation of pregnancy; Z88.5 Allergy status to narcotic agent
CPT/HCPCS: 36415; 59409; 62282; 80053; 80307; 81001; 85025; 85610; 85730; 86780; 86803; 86850; 86900; 86901; 94760; 94762; 96360; 96361; 96365; 96366; G0378; J2590